=== PATIENT | female | born 2000 | race Caucasian/White ===

== ENCOUNTER 2021-05-24 11:50 | Emergency (ER) | payer SELFPAY ==
[2021-05-24 11:52] VITALS: BP 133/78; PULSE 107; RESP 14; TEMP 35.4; O2SAT 96; BMI 28.2
--- NOTE | 2021-05-24 12:12 | EX.ED.VIS.UR ---
HPI HPI - URI History of Present Illness Chief Complaint: Sore Throat Detail of Chief Complaint: Sore throat that started 2 days ago Informant: patient Narrative Narrative: Patient presents with sore throat initially started 2 days ago. Patient was seen at urgent care yesterday and had a negative strep screen. She did not have a COVID test. She denies any fever or cough. Patient feels like her throat is more swollen now and hurts into her jaw and hurts to swallow. She denies any exposures to COVID or anybody with strep. She otherwise has no medical history. Prior similar symptoms: No ROS ROS ED Constitutional Constitutional ED: Reports systems reviewed and no addt'l complaints, except as documented; Denies body ache(s), change in weight or chills Eyes Eyes: Denies acute decrease in peripheral vision, change in vision, double vision or loss of vision ENT ENT ED: Reports none and sore throat; Denies ear pain, lip swelling, loss taste/smell, neck pain or otalgia Cardiovascular Cardiovascular: Reports none; Denies abdominal pain, chest pain with activity, leg edema, lightheadedness, palpitations, rapid heart rate or syncope Respiratory/Chest Respiratory/Chest: Reports none; Denies change in mental status, dry cough, dyspnea, hemoptysis, shortness of breath at rest or shortness of breath with exertion Gastrointestinal Gastrointestinal: Reports none; Denies abdominal pain, change in stool character, diarrhea, hematemesis, hematochezia, melena, rectal bleeding or vomiting Genitourinary Genitourinary ED: Reports none; Denies abdominal discomfort, anuria, dysuria, genital pain or polyuria Musculoskeletal Musculoskeletal: Reports none; Denies arthralgias, back pain, difficulty walking, extremity pain, muscle weakness or myalgias Integumentary Reports none; Denies abscess or rash Neurologic Neurologic: Reports none; Denies abnormal gait, confusion, focal weakness, frequent falls, headache(s), loss of vision, numbness, paresthesias, radicular pain, vertigo or weakness Psychiatric Psychiatric: Reports systems reviewed and no addt'l complaints, except as documented and none; Denies behavioral changes, confusion, difficulty concentrating, hallucinations, suicidal ideation, tactile hallucinations or visual hallucinations Endocrine Endocrinology: Denies none, cold intolerance, excessive sweating, fatigue or heat intolerance Hematologic/Lymphatic Hematologic/Lymphatic: Reports none; Denies anemia, easy bleeding or easy bruising Allergic/Immunologic Allergic/Immunologic ED: Denies as per HPI, none, lip swelling, mouth swelling, throat swelling, tongue swelling or hives PFSH PFSH Medical History no medical history Home Medications hydrocodone-acetaminophen 1 tab PO Q4H PRN PRN 2 Days #10 tablet 05/24/21 [Rx Last Taken Unknown] Allergy/AdvReac Type Severity Reaction Status Date / Time No Known Allergies Allergy Verified 05/24/21 11:51 Social History Smoking Status: Unknown if ever smoked EXAM Physical Exam Const Vital Signs: 05/24/21 11:52 Temperature 95.8 F L Temperature Source Temporal Pulse Rate 107 H Respiratory Rate 14 Blood Pressure 133/78 H Blood Pressure Mean 96 Pulse Ox 96 Oxygen Delivery Method Room Air Positive well nourished and well developed General Appearance ED: well developed and NAD HEENT Reports TM's clear and moist mucous membranes HEENT Narrative: Patient has diffuse pharyngeal erythema and tonsillar erythema with no trismus on exam. No exudates noted. Uvula midline. Patient does have anterior and posterior cervical lymphadenopathy noted bilaterally. normocephalic and atraumatic; Negative for trauma or tenderness Tympanic Membrane ED: Yes TM's clear Eyes PERRL and EOMs intact bilaterally General Eye ED: Negative for pale conjunctiva or scleral icterus Neck no lymphadenopathy, supple and no JVD General: Negative for tenderness Chest Wall inspection of chest normal and palpation of chest normal Chest: Negative for tenderness Resp normal respiratory effort and clear to auscultation bilaterally Effort and Inspection: Negative for respiratory distress or pain with movement Auscultation: Negative for rhonchi, wheezes or diminished lung sounds Cardio regular rate, regular rhythm, S1 normal heart sound, S2 normal heart sound and no murmurs Peripheral Pulses: pulses 2+ throughout GI normal to inspection, nondistended, normoactive bowel sounds, soft to palpation, non-tender, non-distended and no masses Back/Spine no CVA tenderness and no thoracic nor lumbar tenderness Extremity normal to inspection General Extremety ED: Negative for edema General Extremity: Negative for edema Neuro oriented x3, CN's II-XII intact bilaterally, no sensory deficits noted and gait normal Sensorium / Orientation: awake, alert, oriented to person, oriented to place and oriented to time Motor Exam: strength 5/5 throughout and strength abnormal Psych mental status grossly normal Skin no rashes or lesions noted and no wounds MDM MDM MDM Narrative Medical decision making narrative: IV line established on arrival. Patient was given Decadron and Toradol as well as IV fluids. Lab work was unremarkable. [place] test was positive. Patient also had a COVID test that was negative. At this point patient will be discharged to home. She is given a prescription for a few [place] for pain as she has not had much pain relief with the Toradol. Patient advised to push fluids. She is referred to ENT for follow-up in 3 to 5 days. Patient to return if persistent vomiting, worsening pain, dehydration, or condition should worsen anyway. Patient advised to avoid contact sports and we discussed potential for inflammation of the spleen or liver and to avoid trauma to the area. Lab Data Attestation: I reviewed the patient's lab results. Labs: Laboratory Results - last 24 hr 05/24/21 05/24/21 05/24/21 12:40 12:40 12:40 WBC 9.5 RBC 4.68 Hgb 13.7 Hct 40.7 MCV 87.0 MCH 29.3 MCHC 33.7 RDW Std Deviation 41.3 RDW Coeff of Ana 13.2 Plt Count 150 MPV 10.6 Immature Gran % (Auto) 0.300 Neut % (Auto) 53.2 Lymph % (Auto) 39.6 [place] % (Auto) 5.9 Eos % (Auto) 0.3 Baso % (Auto) 0.7 Absolute Neuts (auto) 5.1 Absolute Lymphs (auto) 3.77 Nucleated RBC % 0 Sodium 138 Potassium 3.6 Chloride 102 Carbon Dioxide 29.0 Anion Gap 7 BUN 10 Creatinine 0.92 Estim Creat Clear Calc 87.77 Est GFR (MDRD) Af Amer 100 Est GFR (MDRD) Non-Af 83 BUN/Creatinine Ratio 10.9 Glucose 113 H Calcium 9.2 Monoscreen POSITIVE H Discharge Plan Triage Chief Complaint: Sore Throat ED Provider: Ana Del Valle Dx/Rx/DC Orders Clinical Impression: Acute pharyngitis due to infectious mononucleosis Instructions: ED Mononucleosis Prescriptions: New hydrocodone-acetaminophen [hydrocodone-acetaminophen] 1 TABLET tablet 1 tab PO Q4H PRN PRN (Reason: Pain) 2 Days Qty: 10 RF: 0 Referrals: Bandar Dailey [Other] Alessandro Weaver MD [STAFF PHYSICIAN] - 3-5 Days Disposition Disposition: Home, Self Care
[2021-05-24] MEDS: Ketorolac 30 MG/ML Syringe IV (12:47)
[2021-05-24] MEDS: dexAMETHasone 10 MG/ML Vial IV (12:47)
[2021-05-24 13:12] LABS: Absolute Lymphocyte Count 3.77 X10^3/uL (0.83-4.51); Absolute Neutrophil Count 5.1 X10^3/uL (2.0-7.7); Basophil# 0.07 X10^3/uL; Basophil% 0.7 % (0-1); Eosinophil# 0.03 X10^3/uL; Eosinophils% 0.3 % (0-5); Hematocrit 40.7 % (37-47); Hemoglobin 13.7 g/dL (12.0-15.0); Lymphocyte # 3.77 X10^3/ul (0.83-4.51); Lymphocyte % 39.6 % (19-41); Mean Corp Hgb Conc 33.7 g/dL (32-36); Mean Corpuscular Hgb 29.3 pg (27.0-32.0); Mean Platelet Vol. 10.6 fl (6.2-12.0); Monocyte# 0.56 X10^3/uL; Monocyte% 5.9 % (0-10); NRBC Flagged by Analyzer 0 % (0-5); Neutrophil # 5.06 X10^3/uL (2.7-7.7); Neutrophil % 53.2 % (47-70); Platelet Count 150 K/mm3 (150-450); RBC Distribution Width CV 13.2 % (11.6-14.6); RBC Distribution Width SD 41.3 fl (35.1-43.9); Red Blood Count 4.68 M/mm3 (4.2-5.4); White Blood Count 9.5 K/mm3 (4.4-11.0)
[2021-05-24 13:26] LABS: Anion Gap 7 (5-15); BUN 10 mg/dL (7-18); BUN/Creat Ratio 10.9 RATIO (10-20); Calcium,Total 9.2 mg/dL (8.5-10.1); Chloride 102 mmol/L (98-107); Creatinine, Serum 0.92 mg/dL (0.55-1.02); EST Glomerular Filtration Rate 83 mL/min (>60); Est Glom Filt Rate - Afr Amer 100 mL/min (>60); Estimated Creatinine Clearance 87.77 ml/min; Glucose 113 mg/dL (74-106); Potassium 3.6 mmol/L (3.5-5.1); Sodium Level 138 mmol/L (136-145)
[2021-05-24 13:57] LABS: Internal QC Validated? YES +Cl - CLEAR BKGD; Monotest POSITIVE (Negative)
== END 2021-05-24 14:38 | disposition home or self-care (01) ==
PROVIDERS: Emergency Provider Emergency Medicine; Visit Provider Emergency Medicine
DX: B27.90 Infectious mononucleosis, unspecified without complication (principal)
CPT/HCPCS: 80048; 85025; 86308; 87070; 87426; 96361; 96374; 96375; 99283; J7040

== ENCOUNTER 2021-05-27 12:19 | Emergency (ER) | payer OTHER, SELFPAY ==
[2021-05-27 12:19] VITALS: BP 130/87; PULSE 111; RESP 20; TEMP 36.1; O2SAT 95; BMI 28.3
--- NOTE | 2021-05-27 12:40 | EDS_ITS ---
HPI HPI - URI History of Present Illness Chief Complaint: Sore Throat Detail of Chief Complaint: Sore throat and difficulty swallowing Informant: patient Onset/Context/Timing Context: Gradual Onset Narrative Narrative: Patient presents with a sore throat that started 6 days ago initially. Patient was seen in urgent care initially and had a negative strep screen. I saw patient 3 days ago in the emergency department and she tested positive for mono and had a negative COVID test. Patient was referred to ENT however she has not followed up yet. Patient patient planes of hard time sleeping at night secondary to pain. She has a hard time swallowing. She denies fevers. She denies significant abdominal pain. Recent Illness/Hospitalization: No ROS ROS ED Constitutional Constitutional ED: Reports systems reviewed and no addt'l complaints, except as documented; Denies body ache(s), change in weight or chills Eyes Eyes: Denies acute decrease in peripheral vision, change in vision, double vision or loss of vision ENT ENT ED: Reports none and sore throat; Denies ear pain, lip swelling, loss taste/smell, neck pain or otalgia Cardiovascular Cardiovascular: Reports none; Denies abdominal pain, chest pain with activity, leg edema, lightheadedness, palpitations, rapid heart rate or syncope Respiratory/Chest Respiratory/Chest: Reports none; Denies change in mental status, dry cough, dyspnea, hemoptysis, shortness of breath at rest or shortness of breath with exertion Gastrointestinal Gastrointestinal: Reports none; Denies abdominal pain, change in stool character, diarrhea, hematemesis, hematochezia, melena, rectal bleeding or vomiting Genitourinary Genitourinary ED: Reports none; Denies abdominal discomfort, anuria, dysuria, genital pain or polyuria Musculoskeletal Musculoskeletal: Reports none; Denies arthralgias, back pain, difficulty walking, extremity pain, muscle weakness or myalgias Integumentary Reports none; Denies abscess or rash Neurologic Neurologic: Reports none; Denies abnormal gait, confusion, focal weakness, frequent falls, headache(s), loss of vision, numbness, paresthesias, radicular pain, vertigo or weakness Psychiatric Psychiatric: Reports systems reviewed and no addt'l complaints, except as documented and none; Denies behavioral changes, confusion, difficulty concentrating, hallucinations, suicidal ideation, tactile hallucinations or visual hallucinations Endocrine Endocrinology: Denies none, cold intolerance, excessive sweating, fatigue or heat intolerance Hematologic/Lymphatic Hematologic/Lymphatic: Reports none; Denies anemia, easy bleeding or easy bruising Allergic/Immunologic Allergic/Immunologic ED: Denies as per HPI, none, lip swelling, mouth swelling, throat swelling, tongue swelling or hives PFSH [facility] Medical History (Updated 05/27/21 @ 14:[address] Ana Del Valle, DO) Occipital neuralgia Home Medications clindamycin HCl [Cleocin HCl] 300 mg PO Q6H #40 capsule 05/27/21 [Rx Last Taken Unknown] hydrocodone-acetaminophen 1 tab PO Q4H PRN PRN 2 Days #10 tablet 05/27/21 [Rx Last Taken Unknown] methylprednisolone [Medrol (Ricky)] 4 mg PO DAILY #21 tab 05/27/21 [Rx Last Taken Unknown] oxcarbazepine [Trileptal] 450 mg PO QHS 05/27/21 [History Last Taken Unknown] oxcarbazepine [Trileptal] 600 mg PO DAILY 05/27/21 [History Last Taken Unknown] Allergy/AdvReac Type Severity Reaction Status Date / Time No Known Allergies Allergy Verified 05/24/21 11:51 Family History no significant family his Surgical History no surgical history Social History Smoking Status: Never smoker EXAM Physical Exam Const Vital Signs: 05/27/21 12:19 Temperature 97 F L Temperature Source Temporal Pulse Rate 111 H Respiratory Rate 20 H Blood Pressure 130/87 H Blood Pressure Mean 101 Pulse Ox 95 Oxygen Delivery Method Room Air Positive well nourished and well developed General Appearance ED: well developed and NAD HEENT Reports TM's clear and moist mucous membranes HEENT Narrative: Patient with diffuse pharyngeal erythema and edema of the uvula and soft palate. No tonsillar exudates noted. No trismus on exam. No peritonsillar abscess is noted. normocephalic and atraumatic; Negative for trauma or tenderness Tympanic Membrane ED: Yes TM's clear Eyes PERRL and EOMs intact bilaterally General Eye ED: Negative for pale conjunctiva or scleral icterus Neck no lymphadenopathy, supple and no JVD General: Negative for tenderness Chest Wall inspection of chest normal and palpation of chest normal Chest: Negative for tenderness Resp normal respiratory effort and clear to auscultation bilaterally Effort and Inspection: Negative for respiratory distress or pain with movement Auscultation: Negative for rhonchi, wheezes or diminished lung sounds Cardio regular rate, regular rhythm, S1 normal heart sound, S2 normal heart sound and no murmurs Peripheral Pulses: pulses 2+ throughout GI normal to inspection, nondistended, normoactive bowel sounds, soft to palpation, non-tender, non-distended and no masses Back/Spine no CVA tenderness and no thoracic nor lumbar tenderness Extremity normal to inspection General Extremety ED: Negative for edema General Extremity: Negative for edema Neuro oriented x3, CN's II-XII intact bilaterally, no sensory deficits noted and gait normal Sensorium / Orientation: awake, alert, oriented to person, oriented to place and oriented to time Motor Exam: strength 5/5 throughout and strength abnormal Psych mental status grossly normal Skin no rashes or lesions noted and no wounds MDM MDM MDM Narrative Medical decision making narrative: IV line established. Patient was given normal saline 1 L. Lab work was unremarkable. I did check the throat culture that was performed 3 days ago and it grew out normal marisela. Patient was given Toradol and morphine and Zofran. I will give her another dose of Decadron. I discussed case with ENT physician on-call Dr. Irvin Grimes who recommended empiric treatment with clindamycin as well as a Medrol Dosepak for home and he would be happy to see her in follow-up in the office. Lab Data Attestation: I reviewed the patient's lab results. Labs: Laboratory Results - last 24 hr 05/27/21 05/27/21 13:15 13:15 WBC 10.5 RBC 4.61 Hgb 14.0 Hct 40.4 MCV 87.6 MCH 30.4 MCHC 34.7 RDW Std Deviation 43.2 RDW Coeff of Ana 13.4 Plt Count 160 MPV 10.3 Immature Gran % (Auto) 0.300 Neut % (Auto) 52.8 Lymph % (Auto) 38.5 [place] % (Auto) 7.5 Eos % (Auto) 0.1 Baso % (Auto) 0.8 Absolute Neuts (auto) 5.5 Absolute Lymphs (auto) 4.04 Nucleated RBC % 0 Atypical Lymphocytes RARE Platelet Estimate ADEQUATE RBC Morphology NORM C+C Sodium 134 L Potassium 3.9 Chloride 99 Carbon Dioxide 28.0 Anion Gap 7 BUN 10 Creatinine 0.77 Estim Creat Clear Calc 104.87 Est GFR (MDRD) Af Amer 123 Est GFR (MDRD) Non-Af 102 BUN/Creatinine Ratio 13.0 Glucose 129 H Calcium 9.3 Discharge Plan Triage Chief Complaint: Sore Throat ED Provider: Ana Del Valle Dx/Rx/DC Orders Clinical Impression: Acute pharyngitis due to infectious mononucleosis Instructions: ED Mononucleosis Prescriptions: New clindamycin HCl [Cleocin HCl] 300 MG capsule 300 mg PO Q6H Qty: 40 RF: 0 hydrocodone-acetaminophen [hydrocodone-acetaminophen] 1 TABLET tablet 1 tab PO Q4H PRN PRN (Reason: Pain) 2 Days Qty: 10 RF: 0 methylprednisolone [Medrol (Ricky)] 4 mg tablets,dose pack 4 mg PO DAILY Qty: 21 RF: 0 No Action oxcarbazepine [Trileptal] 150 mg Tablet 450 mg PO QHS RF: 0 oxcarbazepine [Trileptal] 600 mg Tablet 600 mg PO DAILY RF: 0 Primary Care Provider: [facility] ,Out of Referrals: Alessandro Weaver MD [STAFF PHYSICIAN] - 1-2 Days if not improving [facility] Doctor,Out of [Primary Care Provider] -
[2021-05-27] MEDS: Ketorolac 30 MG/ML Syringe IV (13:09)
[2021-05-27] MEDS: Morphine 4 MG/ML Syringe IV (13:10)
[2021-05-27] MEDS: Ondansetron 4 MG/2 ML Vial IV (13:10)
[2021-05-27 13:26] LABS: Absolute Lymphocyte Count 4.04 X10^3/uL (0.83-4.51); Absolute Neutrophil Count 5.5 X10^3/uL (2.0-7.7); Basophil# 0.08 X10^3/uL; Basophil% 0.8 % (0-1); Differential Indicated SCAN CRITERIA MET; Eosinophil# 0.01 X10^3/uL; Eosinophils% 0.1 % (0-5); Hematocrit 40.4 % (37-47); Lymphocyte # 4.04 X10^3/ul (0.83-4.51); Lymphocyte % 38.5 % (19-41); Mean Corp Hgb Conc 34.7 g/dL (32-36); Mean Corpuscular Hgb 30.4 pg (27.0-32.0); Mean Corpuscular Volume 87.6 fL (81-99); Mean Platelet Vol. 10.3 fl (6.2-12.0); Monocyte# 0.79 X10^3/uL; Monocyte% 7.5 % (0-10); NRBC Flagged by Analyzer 0 % (0-5); Neutrophil # 5.53 X10^3/uL (2.7-7.7); Neutrophil % 52.8 % (47-70); POSITIVE MORPHOLOGY YES; Platelet Count 160 K/mm3 (150-450); RBC Distribution Width CV 13.4 % (11.6-14.6); RBC Distribution Width SD 43.2 fl (35.1-43.9); Red Blood Count 4.61 M/mm3 (4.2-5.4); White Blood Count 10.5 K/mm3 (4.4-11.0)
[2021-05-27 13:39] LABS: Anion Gap 7 (5-15); BUN 10 mg/dL (7-18); Calcium,Total 9.3 mg/dL (8.5-10.1); Chloride 99 mmol/L (98-107); Creatinine, Serum 0.77 mg/dL (0.55-1.02); EST Glomerular Filtration Rate 102 mL/min (>60); Est Glom Filt Rate - Afr Amer 123 mL/min (>60); Estimated Creatinine Clearance 104.87 ml/min; Glucose 129 mg/dL (74-106); Potassium 3.9 mmol/L (3.5-5.1); Sodium Level 134 mmol/L (136-145)
[2021-05-27 14:12] LABS: Atypical Lymphocyte RARE %; Platelet Estimate ADEQUATE (ADEQ); Red Cell Morphology NORM C+C NORMAL (NORM C&C)
[2021-05-27] MEDS: Clindamycin HCl 150 MG Capsule 300 MG PO (14:47)
[2021-05-27] MEDS: dexAMETHasone 10 MG/ML Vial IV (14:47)
[2021-05-27 14:55] VITALS: PULSE 98; RESP 20
== END 2021-05-27 14:57 | disposition home or self-care (01) ==
LOC: ED 13:29
PROVIDERS: Emergency Provider Emergency Medicine; Visit Provider Emergency Medicine
DX: J02.9 Acute pharyngitis, unspecified (principal); B27.90 Infectious mononucleosis, unspecified without complication; Z79.899 Other long term (current) drug therapy
CPT/HCPCS: 80048; 85025; 96361; 96374; 96375; 99283; A4216; J2405